=== PATIENT | female | born 1940 | race Caucasian/White ===

== ENCOUNTER 2016-12-30 19:10 | Emergency (ER) | payer MEDICARE, BC, MEDICAID ==
[~2016-12-30 19:10] MED LIST: ACETAMINOPHEN325 MG; ALEVE220 MG; ASPIR 8181 MG; BACTRIM 400-801 TAB; BETAGAN5 ML; CALCIUM 600 W/V1 TAB; CELEBREX200 MG; CRESTOR10 MG; DARVOCET-N 1001 TAB; DETROL LA4 MG; FIBER LAXATIVE; FIBER LAXATIVE625 MG; FIBER THERAPY500 MG; LEVOBUNOLOL HCL15 ML; LIPITOR20 MG; PAXIL CR25 MG; REQUIP0.5 MG; SPECTRAVITE; STOOL SOFTENER100 MG; UNISOM25 MG; [UNRECOGNIZED DRUG - OTHER]; [UNRECOGNIZED DRUG - OTHER]
[2016-12-30] MEDS ORDERED: CERTAVITE SR-A1 EACH (19:34)
[2016-12-30] MEDS ORDERED: ASPIRIN EC81 MG (19:34)
[2016-12-30] MEDS ORDERED: FOSAMAX70 M1 PO (19:34)
[2016-12-30] MEDS ORDERED: NEURONTIN300 M1 PO (19:35)
[2016-12-30] MEDS ORDERED: FISH OIL 11000 MG/CA PO (19:35)
[2016-12-30] MEDS ORDERED: XALATAN2.5 M1 EACH EYE (19:35)
[2016-12-30] MEDS ORDERED: BENADRYL25 M3 PO (19:35)
[2016-12-30] MEDS ORDERED: DITROPAN XL5 M3 PO (19:36)
[2016-12-30] MEDS ORDERED: PAXIL40 M1 PO (19:36)
[2016-12-30] MEDS ORDERED: NAMENDA10 M1 PO (19:36)
[2016-12-30] MEDS ORDERED: SYNTHROID25 MC1 PO (19:36)
[2016-12-30] MEDS ORDERED: ROPINIROLE HCL PO (19:37)
[2016-12-30] MEDS ORDERED: AZULFIDINE500 M1 PO (19:37)
[2016-12-30] MEDS ORDERED: PREDNISONE10 M1 (19:37)
[2016-12-30] MEDS ORDERED: VITAMIN D31000 UNI3 PO (19:38)
== END 2016-12-30 20:49 ==
LOC: EDMED 19:10
DX: S20.211A Contusion of right front wall of thorax, initial encounter (principal); W01.198A Fall on same level from slipping, tripping and stumbling with subsequent striking against other object, initial encounter; Y92.019 Unspecified place in single-family (private) house as the place of occurrence of the external cause